=== PATIENT | male | born 1980 | race Caucasian/White ===

== ENCOUNTER 2017-12-13 09:58 | Outpatient (CLI) | payer OTHER ==
[~2017-12-13 09:58] MED LIST: GADOBUTROL 10 MMOL/10 ML SYRINGE ONE
[2017-12-13] MEDS ORDERED: GADOBUTROL 10 MMOL/10 ML SYRINGE IVP ONE (10:43)
--- NOTE | 2017-12-14 10:48 | MRI Report ---
EXAM: MRI LUMBAR SPINE WITHOUT AND WITH CONTRAST EXAM DATE: 12/13/2017 10:51 AM. CLINICAL HISTORY: Chronic back pain. COMPARISONS: None. TECHNIQUE: Multiplanar, multisequence T1-weighted and fluid-sensitive sequences of the lumbar spine f rom T12 to S1 before and after administration of intravenous contrast. Other: None. IV contrast: The reader is referred to the institution's electronic medical record for type and amount of intravenous contrast administered. FINDINGS: Numbering assumes five [id number] lumbar-type vertebral bodies. No suspicious marrow replacement is present in the lumbar spine. The distal tip of the conus medullaris is seen at the level of the L1 inferior endplate. No abnormal enhancement is seen within the lumbar disk spaces, in the conus medullaris, or along the cauda equina nerve roots. T11 through L3: Unremarkable disk space levels. L3-L4: A posterior bulge of the annulus is present. Superior lateral recess narrowing is present. The re is a minimal far lateral component to the disk bulge on the right. L4-L5: A mild to moderate broad-based posterior disk protrusion is seen. Disk material extends inferi or to the disk space. Central canal measures 5 mm. Bilateral superior lateral recess stenosis is pres ent. Left foraminal narrowing is present. L5-S1: Grade 1 retrolisthesis of L5 relative to S1 is present. There might be subtle spondylolysis on the right at this level. There is a minimal shallow proximal foraminal protrusion bilaterally with p roximal foraminal narrowing present bilaterally. No central canal or foraminal stenosis. Facet/ligamentum flavum hypertrophy is seen throughout the lumbar spine, greatest at L3-L4 and L4-L5. 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 IMPRESSION: 1. A posterior disk protrusion is present at L4-L5 with disk material extending inferior to the disk space. This results in moderate central canal stenosis and bilateral superior lateral recess stenosis . 2. Minimal grade 1 retrolisthesis of L5 relative to S1 is present. A subtle focus of spondylolysis is suspected on the right. 3. Minimal degenerative disk disease is seen at L3-L4 and L5-S1 without central canal stenosis presen t. 4. Facet/ligamentum flavum hypertrophy is seen at multiple levels. This is greatest at L3-L4 and L4-L 5. Comment: The following findings are so common in adults without low back pain that while we report th eir presence, they must be interpreted with caution and in the context of the clinical situation. (Re hiral Thomas et al, Spine 2001) Prevalence of findings in patients without low back pain: Disk degeneration (any evidence): 92% Disk desiccation/T2 signal loss: 83% Disk height loss: 56% Disk bulge: 64% Disk protrusion: 32% Annular tear/high intensity zone: 38% [facility] Referring Provider Line: [phone] SITE ID: [id number]
== END 2017-12-13 09:59 | disposition home or self-care (01) ==
LOC: DI 09:58
PROVIDERS: ATTEND Nurse Practitioner Adult Health
DX: M51.26 Other intervertebral disc displacement, lumbar region (principal); M51.37 Other intervertebral disc degeneration, lumbosacral region; M54.9 Dorsalgia, unspecified; G89.29 Other chronic pain
CPT/HCPCS: 72158; A9585

== ENCOUNTER 2018-04-13 16:39 | Outpatient (CLI) | payer OTHER | END 2018-04-13 16:40 | disposition home or self-care (01) | LOC: LAB 16:39 | PROVIDERS: ATTEND Internal Medicine | DX: R53.83 Other fatigue (principal); R63.5 Abnormal weight gain | CPT/HCPCS: 36415; 84403; 84443 ==

== ENCOUNTER 2018-06-25 13:56 | Outpatient (CLI) | payer OTHER | END 2018-06-25 13:57 | disposition home or self-care (01) | LOC: LAB 13:56 | PROVIDERS: ATTEND Internal Medicine | DX: E29.1 Testicular hypofunction (principal) | CPT/HCPCS: 36415; 84403 ==

== ENCOUNTER 2018-08-29 09:39 | Outpatient (CLI) | payer OTHER ==
[2018-08-29 10:21] LABS: BASOPHILS # (AUTO) 0.1 10^3/uL (0.0-0.1); EOSINOPHILS # (AUTO) 0.2 10^3/uL (0.0-0.7); HGB - HEMOGLOBIN 16.6 g/dL (14.0-18.0); LYMPHOCYTES # (AUTO) 2.2 10^3/uL (1.5-3.5); LYMPHOCYTES % (AUTO) 32.8 %; MEAN CORPUSCULAR HEMOGLOBIN 29.3 pg (27.0-31.0); MEAN CORPUSCULAR HGB CONC 33.5 g/dL (32.0-36.0); MEAN CORPUSCULAR VOLUME 87.5 fL (80.0-94.0); MEAN PLATELET VOLUME 9.1 fL (7.4-11.4); MONOCYTES # (AUTO) 0.7 10^3/uL (0.0-1.0); MONOCYTES % (AUTO) 10.1 %; NEUTROPHILS # (AUTO) 3.5 10^3/uL (1.5-6.6); NEUTROPHILS % (AUTO) 53.1 %; PLT - PLATELET COUNT 233 10^3/uL (130-450); RED BLOOD COUNT 5.68 10^6/uL (4.70-6.10); RED CELL DISTRIBUTION WIDTH 13.5 % (12.0-15.0); WHITE BLOOD COUNT 6.6 x10^3/uL (4.8-10.8)
[2018-08-29 10:32] LABS: ALBUMIN 4.2 g/dL (3.2-5.5); ALBUMIN/GLOBULIN RATIO 1.4 (1.0-2.2); ALKALINE PHOSPHATASE 65 IU/L (42-121); ALT ALANINE AMINOTRANSFERASE 51 IU/L (10-60); AST ASPARTATE AMINOTRANSFERASE 39 IU/L (10-42); BILIRUBIN,TOTAL 0.8 mg/dL (0.2-1.0); BUN - BLOOD UREA NITROGEN 10 mg/dL (6-20); CALCIUM 8.7 mg/dL (8.5-10.3); CARBON DIOXIDE - CO2 26 mmol/L (21-32); CHLORIDE 104 mmol/L (101-111); CHOL/HDL RATIO 6.8 (<5.0); CHOLESTEROL 183 mg/dL; CREATININE 0.7 mg/dL (0.6-1.2); GFR - MDRD 126 (>89); GLUCOSE 98 mg/dL (70-100); HDL CHOLESTEROL 27 mg/dL; LDL CHOLESTEROL,CALCULATED 126 mg/dL; LDL/HDL RATIO 4.7 (<3.6); SODIUM 136 mmol/L (135-145); TOTAL PROTEIN 7.2 g/dL (6.7-8.2); VLDL CHOLESTEROL 30 mg/dL
[2018-08-29 10:36] LABS: HB2 TOTAL 18.5 g/dL; HEMOGLOBIN A1C 0.68 g/dL; HEMOGLOBIN A1C % 5.5 % (4.6-6.2)
[2018-08-29 10:56] LABS: THYROID STIMULATING HORMONE 1.18 uIU/mL (0.34-5.60)
[2018-08-29 11:24] LABS: FOLLICLE STIMULATING HORMONE 0.36 mIU/mL
[2018-08-29 11:28] LABS: LUTEINIZING HORMONE < 0.20 mIU/mL
== END 2018-08-29 09:40 | disposition home or self-care (01) ==
LOC: LAB 09:39
PROVIDERS: ATTEND Internal Medicine
DX: E29.1 Testicular hypofunction (principal); Z83.3 Family history of diabetes mellitus; R63.5 Abnormal weight gain; M54.5 Low back pain; F41.9 Anxiety disorder, unspecified; F43.10 Post-traumatic stress disorder, unspecified; R90.0 Intracranial space-occupying lesion found on diagnostic imaging of central nervous system; Z13.6 Encounter for screening for cardiovascular disorders; Z79.899 Other long term (current) drug therapy
CPT/HCPCS: 36415; 80053; 80061; 81599; 82670; 83001; 83002; 83036; 83721; 84153; 84443; 85025